=== PATIENT | female | born 1965 | race Two or more races ===

== ENCOUNTER 2020-03-26 22:33 | Emergency (ER) | payer OTHER ==
[2020-03-26] MEDS ORDERED: POTASSIUM CHLO10 ME1 PO (22:49)
[2020-03-26] MEDS ORDERED: HYDROCHLOROTH12.5 MG (22:50)
[2020-03-26] MEDS ORDERED: PRAVASTATIN SOD20 MG PO (22:50)
--- NOTE | 2020-03-26 23:55 | EKG ---
[facility] [address] [facility] [place], [place] [address] Signed Normal sinus rhythm Normal ECG No previous ECGs available Confirmed by FEDE ROJAS MD ([id number] on 03/26/2020 11:55:09 PM Electronically Signed By: FEDE ROJAS MD 03/26/20 [id number] PATIENT NAME: LAURAAMOL Electrocardiogram DATE OF : 63 PHYSICIAN: FEDE ROJAS MD REPORT #: [id number] REPORT IS CONFIDENTIAL AND NOT TO BE RELEASED WITHOUT AUTHORIZATION
== END 2020-03-27 02:39 | disposition home or self-care (01) ==
LOC: ED 22:33
DX: R07.9 Chest pain, unspecified (principal); M79.602 Pain in left arm; I10 Essential (primary) hypertension; I25.2 Old myocardial infarction; E78.00 Pure hypercholesterolemia, unspecified; Z79.899 Other long term (current) drug therapy
CPT/HCPCS: 71045; 80053; 83735; 84484; 85025; 93005; 93010; 99285-25